=== PATIENT | female | born 1980 | race Caucasian/White ===

== ENCOUNTER 2018-09-23 09:29 | Inpatient (IN) | payer MEDICAID ==
[2018-09-23] MEDS ORDERED: METHYLERGONOVINE 0.2 MG INJ IM ×2 (10:00→18:00)
[2018-09-23] MEDS ORDERED: MISOPROSTOL 200 MCG TAB PR ×2 (10:00→18:00)
[2018-09-23] MEDS ORDERED: CARBOPROST 250 MCG INJ IM ×2 (10:00→18:00)
[2018-09-23] MEDS ORDERED: OXYTOCIN 30 UNITS/LR 500 ML IV ×3 (10:00→18:00)
[2018-09-23] MEDS: LACTATED RINGER'S 1,000 ML IV ×2 (10:57→12:56)
[2018-09-23 11:44] LABS: ADD MAN DIFF? NO
[2018-09-23 11:52] LABS: BASOPHILS % 0.3 % (0.0-2.0); EOSINOPHILS # 0.1 10^3/ul (0.0-0.5); EOSINOPHILS % 1.3 % (0.0-7.0); HEMATOCRIT 37.4 % (37.0-47.0); HEMOGLOBIN 12.4 g/dl (12.0-16.0); LYMPHOCYTES # 1.7 10^3/ul (0.8-2.9); LYMPHOCYTES % 18.4 % (15.0-51.0); MEAN CORPUSCULAR HEMOGLOBIN 28.2 pg (29.0-33.0); MEAN CORPUSCULAR HGB CONC 33.2 g/dl (32.0-37.0); MEAN CORPUSCULAR VOLUME 85.2 fl (82.0-101.0); MEAN PLATELET VOLUME 10.5 fl (7.4-10.4); MONOCYTE # 0.6 10^3/ul (0.3-0.9); MONOCYTES % 6.7 % (0.0-11.0); NEUTROPHIL # 6.7 10^3/ul (1.6-7.5); NEUTROPHILS % 72.4 % (39.0-77.0); PLATELET COUNT 232 10^3/UL (140-415); RED BLOOD COUNT 4.39 10^6/ul (4.20-5.40); RED CELL DISTRIBUTION WIDTH 13.9 % (11.5-14.5)
[2018-09-23 11:52] LABS: WHITE BLOOD COUNT 9.3 10^3/ul (4.8-10.8)
[2018-09-23 12:21] LABS: INR 0.87; PROTIME 11.9 Sec (11.9-14.9); PT RATIO 0.9
[2018-09-23 12:22] LABS: PARTIAL THROMBOPLASTIN TIME 26.3 Sec (23.0-35.0)
[2018-09-23 13:08] LABS: HEPATITIS B SURFACE ANTIGEN NEGATIVE (NEGATIVE)
[2018-09-23] MEDS ORDERED: morphine SULFATE/PF (10 MG/10 ML) INJ (13:31)
[2018-09-23] MEDS ORDERED: PHENYLephrine (100 MCG/ML) 5ML SYG ×2 (13:39→14:18)
[2018-09-23] MEDS ORDERED: ALBUTEROL 0.083% (NEB) 2.5 MG/3 ML AMP HHN (14:00)
[2018-09-23] MEDS ORDERED: NALOXONE (0.4 MG/ML) INJ IV (14:00)
[2018-09-23] MEDS ORDERED: DIPHENHYDRAMINE 50 MG INJ IV (14:00)
[2018-09-23] MEDS ORDERED: METOCLOPRAMIDE 10 MG INJ IV (14:00)
[2018-09-23] MEDS ORDERED: KETOROLAC 30 MG INJ IV (14:00)
[2018-09-23] MEDS ORDERED: FENTAnyl 50 MCG/ML VIAL IV ×2 (14:00)
[2018-09-23] MEDS ORDERED: ONDANSETRON 4 MG INJ IV (14:00)
[2018-09-23] MEDS ORDERED: HYDROmorphONE 1 MG/5 ML IV SYRINGE IV ×2 (14:00)
[2018-09-23] MEDS ORDERED: FENTAnyl 50 MCG/ML VIAL (14:15)
[2018-09-23] MEDS ORDERED: ONDANSETRON 4 MG INJ (14:16)
[2018-09-23] MEDS: OXYTOCIN 30 UNITS/LR 500 ML IV ×2 (14:57→18:55)
[2018-09-23] MEDS: HYDROmorphONE 1 MG/5 ML IV SYRINGE IV (16:26)
[2018-09-23 16:36] LABS: RAPID PLASMA REAGIN NONREACTIVE (NR)
[2018-09-23] MEDS: IBUPROFEN 600 MG TAB PO (18:00)
[2018-09-23] MEDS ORDERED: OXYCODONE/ACETAMINOPHEN (5/325) TAB PO (18:00)
[2018-09-23] MEDS: CEFAZOLIN 2 GM/50 ML (PMX) 50 ML IVPB (18:19)
[2018-09-23] MEDS: LANOLIN 7 GM TUBE TOP (18:52)
[2018-09-23] MEDS: SENNA/DOCUSATE NA (8.6MG/50MG) TAB PO (21:00)
[2018-09-23] MEDS: CEFAZOLIN 1 GM/50 ML (PMX) 50 ML IVPB (22:44)
[2018-09-24] MEDS: OXYTOCIN 30 UNITS/LR 500 ML IV ×3 (01:07→09:47)
[2018-09-24] MEDS: LACTATED RINGER'S 1,000 ML IV ×2 (01:49→10:40)
[2018-09-24] MEDS: IBUPROFEN 600 MG TAB PO ×3 (06:00→18:19)
[2018-09-24] MEDS: SENNA/DOCUSATE NA (8.6MG/50MG) TAB PO ×2 (08:48→22:14)
[2018-09-24 09:01] LABS: ADD MAN DIFF? NO
[2018-09-24 09:06] LABS: WHITE BLOOD COUNT 12.7 10^3/ul (4.8-10.8)
[2018-09-24 09:06] LABS: BASOPHILS % 0.2 % (0.0-2.0); EOSINOPHILS # 0.1 10^3/ul (0.0-0.5); EOSINOPHILS % 0.8 % (0.0-7.0); HEMATOCRIT 36.2 % (37.0-47.0); LYMPHOCYTES # 1.1 10^3/ul (0.8-2.9); LYMPHOCYTES % 8.6 % (15.0-51.0); MEAN CORPUSCULAR HEMOGLOBIN 28.4 pg (29.0-33.0); MEAN CORPUSCULAR HGB CONC 33.1 g/dl (32.0-37.0); MEAN CORPUSCULAR VOLUME 85.6 fl (82.0-101.0); MEAN PLATELET VOLUME 10.5 fl (7.4-10.4); MONOCYTE # 0.7 10^3/ul (0.3-0.9); MONOCYTES % 5.8 % (0.0-11.0); NEUTROPHIL # 10.7 10^3/ul (1.6-7.5); PLATELET COUNT 210 10^3/UL (140-415); RED BLOOD COUNT 4.23 10^6/ul (4.20-5.40); RED CELL DISTRIBUTION WIDTH 14.3 % (11.5-14.5)
[2018-09-24] MEDS ORDERED: NALOXONE (0.4 MG/ML) INJ IV (10:00)
[2018-09-24] MEDS ORDERED: morphine 2 MG INJ IV ×3 (10:00)
[2018-09-24] MEDS ORDERED: ONDANSETRON 4 MG INJ IV (10:00)
[2018-09-24] MEDS ORDERED: DIPHENHYDRAMINE 50 MG INJ IV (10:00)
[2018-09-24] MEDS: KETOROLAC 30 MG INJ IV (10:06)
[2018-09-24] MEDS: OXYCODONE/ACETAMINOPHEN (5/325) TAB PO ×2 (16:33→18:05)
[2018-09-24] MEDS: HYDROCODONE/APAP (5/325) TAB PO (22:14)
[2018-09-25] MEDS: IBUPROFEN 600 MG TAB PO ×5 (00:18→23:22)
[2018-09-25] MEDS: SENNA/DOCUSATE NA (8.6MG/50MG) TAB PO ×2 (10:10→21:00)
[2018-09-25] MEDS: HYDROCODONE/APAP (5/325) TAB PO ×2 (10:11→23:22)
[2018-09-25] MEDS ORDERED: IBUPROFEN 600 MG TAB PO (12:00)
[2018-09-26] MEDS: IBUPROFEN 600 MG TAB PO ×2 (06:40→11:46)
[2018-09-26] MEDS: SENNA/DOCUSATE NA (8.6MG/50MG) TAB PO (08:41)
[2018-09-26] MEDS: DIPHTH/TET/ACEL PERTUSS (ADULT) 0.5 ML VIAL IM* (09:21)
== END 2018-09-26 16:30 | disposition home or self-care (01) | DRG 785 ==
LOC: L-D 09:29 → PP1 17:15
PROVIDERS: Obstetrics & Gynecology
PROC: 10D00Z1 Extraction of Products of Conception, Low, Open Approach (ICD-10-PCS; principal; 2018-09-23 12:30)
PROC: 0UB70ZZ Excision of Bilateral Fallopian Tubes, Open Approach (ICD-10-PCS; 2018-09-23 12:30)
DX: O34.211 Maternal care for low transverse scar from previous cesarean delivery (principal); Z3A.40 40 weeks gestation of pregnancy; Z37.0 Single live birth; Z30.2 Encounter for sterilization
CPT/HCPCS: 85025; 85610; 85730; 86592; 86850; 86900; 86901; 87340; 88302